=== PATIENT | female | born 1985 | race Caucasian/White ===

== ENCOUNTER 2023-10-25 09:24 | Outpatient (CLI) | payer MEDICAID ==
[2023-10-25 10:02] LABS: ALBUMIN 4.5 g/dL (3.2-5.5); ALKALINE PHOSPHATASE 42 IU/L (42-121); ALT ALANINE AMINOTRANSFERASE 12 IU/L (10-60); AST ASPARTATE AMINOTRANSFERASE 12 IU/L (10-42); BILIRUBIN,TOTAL 0.9 mg/dL (0.2-1.0); BUN - BLOOD UREA NITROGEN 17 mg/dL (6-20); CALCIUM 9.1 mg/dL (8.5-10.3); CARBON DIOXIDE - CO2 30 mmol/L (21-32); CHLORIDE 105 mmol/L (101-111); CHOL/HDL RATIO 3.4 (<4.4); CHOLESTEROL 228 mg/dL; CREATININE 0.7 mg/dL (0.6-1.3); CRP - C-REACTIVE PROTEIN < 0.5 mg/dL (<0.5); GFR - MDRD 94 (>89); GLUCOSE 100 mg/dL (74-104); HDL CHOLESTEROL 68 mg/dL; LDL CHOLESTEROL,CALCULATED 144 mg/dL; LDL/HDL RATIO 2.1 (<4.4); POTASSIUM 3.9 mmol/L (3.5-4.5); SODIUM 138 mmol/L (135-145); TOTAL PROTEIN 6.8 g/dL (6.4-8.9); TRIGLYCERIDES 79 mg/dL; VLDL CHOLESTEROL 16 mg/dL
[2023-10-25 10:03] LABS: BASOPHILS # (AUTO) 0.1 10^3/uL (0.0-0.1); BASOPHILS % (AUTO) 0.9 %; EOSINOPHILS # (AUTO) 0.8 10^3/uL (0.0-0.7); EOSINOPHILS % (AUTO) 12.8 %; HCT - HEMATOCRIT 45.1 % (37.0-47.0); HGB - HEMOGLOBIN 14.5 g/dL (12.0-16.0); LYMPHOCYTES # (AUTO) 1.7 10^3/uL (1.5-3.5); LYMPHOCYTES % (AUTO) 26.3 %; MEAN CORPUSCULAR HEMOGLOBIN 27.2 pg (27.0-31.0); MEAN CORPUSCULAR HGB CONC 32.2 g/dL (32.0-36.0); MEAN CORPUSCULAR VOLUME 84.5 fL (81.0-99.0); MEAN PLATELET VOLUME 11.3 fL (7.9-10.8); MONOCYTES # (AUTO) 0.4 10^3/uL (0.0-1.0); MONOCYTES % (AUTO) 6.4 %; NEUTROPHILS # (AUTO) 3.4 10^3/uL (1.5-6.6); NEUTROPHILS % (AUTO) 53.4 %; PLT - PLATELET COUNT 247 10^3/uL (130-450); RED BLOOD COUNT 5.34 10^6/uL (4.20-5.40); RED CELL DISTRIBUTION WIDTH 12.5 % (12.0-15.0); WHITE BLOOD COUNT 6.4 x10^3/uL (4.8-10.8)
[2023-10-25 10:17] LABS: THYROID STIMULATING HORMONE 2.11 uIU/mL (0.34-5.60)
[2023-10-25 10:22] LABS: FERRITIN 30.3 ng/mL (11.0-306.8)
[2023-10-25 10:25] LABS: RHEUMATOID FACTOR NEGATIVE (Negative)
[2023-10-25 10:34] LABS: ESTIMATED AVERAGE GLUCOSE 100 mg/dL (70-100); HEMOGLOBIN A1c% 5.1 % (4.27-6.07)
[2023-10-26 21:07] LABS: THYROGLOBULIN ANTIBODY <1.0 IU/mL (0.0-0.9); THYROID PEROXIDASE (TPO) AB 14 IU/mL (0-34)
[2023-10-28 15:08] LABS: ANTINUCLEAR ANTIBODIES IFA Negative (.)
== END 2023-10-25 09:25 | disposition home or self-care (01) ==
LOC: LAB 09:24
PROVIDERS: ATTEND Family Medicine
DX: D25.9 Leiomyoma of uterus, unspecified (principal); L65.9 Nonscarring hair loss, unspecified; M25.50 Pain in unspecified joint; Z86.32 Personal history of gestational diabetes; Z83.49 Family history of other endocrine, nutritional and metabolic diseases
CPT/HCPCS: 36415; 80053; 80061; 82728; 83036; 83721; 84443; 85025; 85651; 86038; 86140; 86376; 86430; 86800

== ENCOUNTER 2023-12-03 16:00 | Outpatient (CLI) | payer MEDICAID ==
--- NOTE | 2023-12-04 17:35 | Ultrasound Report ---
PROCEDURE: Pelvic w/Transvaginal INDICATIONS: UTERINE FIBROIDS TECHNIQUE: Real-time scanning was performed of the pelvic organs, with image documentation. Additional endovagi nal scanning was necessary due to incomplete visualization of the adnexal and endometrial structures by transabdominal scanning. COMPARISON: None. FINDINGS: Uterus: Uterus is anteverted and normal in size at 7.9 x 4.9 x 5.5 cm. The myometrium is heterogene ous. The endometrium measures 9.5 mm in combined thickness. Multiple areas of heterogeneous echogen icity are identified within the uterus. The largest is in the mid anterior intramural region measurin g 24 x 19 x 20 mm. There is a larger focus measuring 8 7 x 61 x 63 mm in the mid anterior region. How ever, this is not well characterized as connection to the uterus is not definitively identified. Ovaries: The right ovary measures 3.4 x 1.7 x 2.8 cm, with a calculated ovarian volume of 8.4 cc. T he left ovary measures 3.0 x 1.6 x 3.1 cm, with a calculated ovarian volume of 7.7 cc. The ovaries h ave a normal sonographic appearance. Less than 12 follicles can be seen in each ovary. No adnexal m asses are seen. No cystic lesions measuring greater than 3 cm. Other: No pathologic free abdominal or pelvic fluid. IMPRESSION: Multiple uterine fibroids. Large focus of heterogeneous echogenicity along the midportion of the uterus, poorly characterized as above. This is suspected to represent a pedunculated fibroid. However, direct visualization to the u terus is unable to be identified. Abdominal mass of other etiology cannot be definitively excluded. P elvic MRI is recommended for further evaluation. Reviewed by: Claribel Tran MD on 12/04/2023 5:33 PM PDT Approved by: Claribel Tran MD on 12/04/2023 5:33 PM PDT Station ID: [id number]
== END 2023-12-03 16:01 | disposition home or self-care (01) ==
LOC: DI 16:00
PROVIDERS: ATTEND Family Medicine
DX: R10.32 Left lower quadrant pain (principal); D25.1 Intramural leiomyoma of uterus; R93.5 Abnormal findings on diagnostic imaging of other abdominal regions, including retroperitoneum